=== PATIENT | female | born 1975 | race American Indian/Alaskan Native ===

== ENCOUNTER 2021-04-09 15:51 | Emergency (ER) | payer SELFPAY ==
[2021-04-09] MEDS ORDERED: methylPREDNISolone Sodium Succinate 125 MG/2 ML SDV IVPUSH ONE (16:00)
[2021-04-09] MEDS ORDERED: Famotidine 20 MG/2 ML SDV IVPUSH ONE (16:00)
[2021-04-09 16:02] VITALS: BP 162/85; PULSE 99
--- NOTE | 2021-04-09 16:16 | EDM.PDOC ---
ED HPI GENERAL MEDICAL PROBLEM - General Chief Complaint: Allergic Reaction Stated Complaint: ALLERGIC RX Time Seen by Provider: 04/09/21 15:55 - History of Present Illness INITIAL COMMENTS - FREE TEXT/NARRATIVE: 45-year-old female presents the emergency room with an apparent allergic reaction. Patient's had multiple reactions like this in the past that she seems to get better with steroids and conservative management. The patient does have an EpiPen but does not feel that her symptoms warranted her using it at this point. The symptoms have been getting worse over the last couple of weeks and have not made any rapid acceleration and worsening. The patient has lots of problems when she is in travel trailers. Apparently there is bought a new one because of the allergies and wonder if there is some in the old one that triggered these. Apparently the new trailer that does not have much upholstery and it has all hard floors and it is still causing the symptoms. The patient is cleaned multiple times and she just gets more and more plugged up. She has noticed swelling of the lips tongue. She has not had any shortness of breath however and her symptoms are gradually getting worse there is not a rapid progression. - Related Data Allergies Allergy/AdvReac Type Severity Reaction Status Date / Time aspirin Allergy Severe Swelling Verified 04/09/21 16:02 cephalexin monohydrate Allergy Severe Anaphylactic Verified 04/09/21 16:02 [From Keflex] Shock ibuprofen Allergy Severe Swelling Verified 04/09/21 16:02 Penicillins Allergy Severe Anaphylactic Verified 04/09/21 16:02 Shock Multiple Seasonal Allergies Allergy Severe Swelling Uncoded 04/09/21 16:02 Home Meds: Home Meds EPINEPHrine [Epipen] 0.3 mg IM ASDIRECTED PRN 08/30/15 [History] Fexofenadine HCl [Dacia Allergy] 60 mg PO Q12HR PRN 08/30/15 [History] diphenhydrAMINE HCL [Benadryl Allergy] 50 mg PO Q6HR PRN 08/30/15 [History] Albuterol Sulfate [Proair Hfa] 2 puff INH DAILY PRN 12/19/15 [History] Cetirizine [ZyrTEC] 20 mg PO DAILY 12/19/15 [History] Azelastine [Astelin Nasal Soln] 1 spray JHOANA DAILY 04/09/21 [History] Famotidine 20 mg PO ASDIRECTED #30 tablet 04/09/21 [Rx] LORazepam [Ativan] 0.5 mg PO ASDIRECTED #4 tablet 04/09/21 [Rx] predniSONE [Prednisone] 60 mg PO ASDIRECTED #15 tablet 04/09/21 [Rx] Past Medical History HEENT History: Reports: Allergic Rhinitis Cardiovascular History: Reports: None Respiratory History: Reports: None Gastrointestinal History: Reports: None Genitourinary History: Reports: None [employer] History: Reports: None Musculoskeletal History: Reports: None Neurological History: Reports: None Psychiatric History: Reports: None Endocrine/Metabolic History: Reports: None Hematologic History: Reports: None Immunologic History: Reports: None Oncologic (Cancer) History: Reports: None Dermatologic History: Reports: None - Infectious Disease History Infectious Disease History: Reports: None - Past Surgical History Female Surgical History: Reports: Tubal Ligation Social & Family History - Family History Family Medical History: No Pertinent Family History ED ROS GENERAL - Review of Systems Review Of Systems: See Below Constitutional: Reports: No Symptoms HEENT: Reports: Other (See history of present illness). Denies: No Symptoms Respiratory: Reports: No Symptoms. Denies: Shortness of Breath, Wheezing Cardiovascular: Reports: No Symptoms Endocrine: Reports: No Symptoms GI/Abdominal: Reports: No Symptoms : Reports: No Symptoms Musculoskeletal: Reports: No Symptoms Skin: Reports: Other (At times she has itching in her skin this comes and goes she seems to have a burning sensation more on the right side compared to the left and this is been an ongoing issue for several years I am not sure it is related to her allergies) Neurological: Denies: Confusion, Dizziness, Headache Psychiatric: Reports: Other (She is a little anxious at this time.) ED EXAM, GENERAL - Physical Exam Exam: See Below Exam Limited By: No Limitations General Appearance: Alert, No Apparent Distress, Other (She feels that her lips are slightly swollen and her tongue is slightly enlarged at this time but without her mentioning this 1 would not appreciate it just from looking at her) Eye Exam: Bilateral Eye: Normal Inspection Ears: Normal External Exam, Normal Canal, Hearing Grossly Normal, Normal TMs Nose: Normal Inspection, Normal Mucosa, No Blood Throat/Mouth: Normal Inspection, Normal Lips, Normal Teeth, Normal Gums, Normal Oropharynx, Normal Voice, No Airway Compromise Head: Atraumatic, Normocephalic Neck: Normal Inspection, Supple, Non-Tender, Full Range of Motion. No: Lymphadenopathy (L), Lymphadenopathy (R) Respiratory/Chest: No Respiratory Distress, Lungs Clear, Normal Breath Sounds Cardiovascular: Regular Rate, Rhythm, No Edema, No Murmur GI/Abdominal: Normal Bowel Sounds, Soft, Non-Tender Extremities: Normal Inspection Neurological: Alert, Oriented, Normal Cognition Skin Exam: Warm, Dry, Intact, Normal Color, No Rash Course - Vital Signs Last Recorded V/S: Last Vital Signs Temp 36.1 C 04/09/21 15:57 Pulse 99 04/09/21 15:57 Resp 22 H 04/09/21 15:57 BP 162/85 H 04/09/21 15:57 Pulse Ox 99 04/09/21 15:57 - Orders/Labs/Meds Meds: Medications Discontinued Medications Generic Name Dose Route Start Last Admin Trade Name Freq PRN Reason Stop Dose Admin Famotidine 40 mg 04/09/21 16:00 04/09/21 16:08 Famotidine 20 Mg/2 Ml Sdv IVPUSH 04/09/21 16:01 40 mg ONETIME ONE Administration Methylprednisolone Sodium Succinate 125 mg 04/09/21 16:00 04/09/21 16:09 Methylprednisolone Sodium Succinate 125 Mg/2 Ml Sdv IVPUSH 04/09/21 16:01 125 mg ONETIME ONE Administration - Re-Assessments/Exams Free Text/Narrative Re-Assessment/Exam: 04/09/21 18:52 Patient is doing much better after getting 40 mg of IV famotidine and 125 Solu- Medrol I doubt the Solu-Medrol side time to do much at this point. We will discharge with 5 days of prednisone and will have her use famotidine 20 mg twice daily for 7 days and then once daily thereafter. Patient recounted her Benadryl and believes she took 11 tablets today with out any symptom improvement. The patient has had difficulty sleeping on steroids in the past I will give her Ativan 0.5 mg for the next 3 nights. We will put her on prednisone 60 mg every morning starting tomorrow morning for 5 mornings. Departure - Departure Time of Disposition: 18:59 Disposition: Home, Self-Care 01 Clinical Impression: Allergic reaction - Discharge Information Referrals: PCP,None [Primary Care Provider] - Forms: ED Department Discharge Additional Instructions: Return to the emergency room with any questions problems or worsening symptoms. Your medications have been sent electronically to [facility] in the [facility]. You were started on prednisone take 3 tablets every morning for 5 mornings starting tomorrow morning. You have been given famotidine take 20 mg twice daily for 7 days and then 1 daily thereafter. After this prescription runs out you can buy this [id number]. And you have been given Ativan 0.5 mg take 1 nightly for the next 3 to 4 days as needed. I would not recommend taking Benadryl the rest of today or tomorrow but on Monday you may resume it if you think it is helping any and you need it. Follow-up in the hospital clinic next week if you need to. [phone] Sepsis Event Note (ED) - Focused Exam Vital Signs: Vital Signs Temp Pulse Resp BP Pulse Ox 04/09/21 15:57 36.1 C 99 22 H 162/85 H 99
== END 2021-04-09 19:18 | disposition home or self-care (01) ==
LOC: JD.ED 15:51
DX: L29.9 Pruritus, unspecified (principal); T44.5X5A Adverse effect of predominantly beta-adrenoreceptor agonists, initial encounter; Z88.1 Allergy status to other antibiotic agents; Z88.8 Allergy status to other drugs, medicaments and biological substances; Z88.0 Allergy status to penicillin
CPT/HCPCS: 96374; 96375; 99283; J2930; J3490